=== PATIENT | female | born 1965 | race Hispanic/Latino ===

== ENCOUNTER 2021-02-25 01:30 | Inpatient (IN) | payer MEDICARE ==
[2021-02-25 16:11] LABS: Basophils # (Auto) 0.1 K/mm3 (0.0-0.1); Basophils % (Auto) 0.7 % (0.0-1.8); Eosinophils # (Auto) 0.8 K/mm3 (0.0-0.4); Eosinophils % (Auto) 8.9 % (0.0-4.3); Hematocrit 31.5 % (30.3-42.9); Hemoglobin 10.8 gm/dl (10.1-14.3); Lymphocytes # (Auto) 2.1 K/mm3 (1.2-5.4); Lymphocytes % (Auto) 23.3 % (13.4-35.0); Mean Corpuscular HGB Conc 34 % (30-34); Mean Corpuscular Volume 85 fl (79-97); Monocytes # (Auto) 0.5 K/mm3 (0.0-0.8); Platelet Count 329 K/mm3 (140-440); Red Blood Count 3.72 M/mm3 (3.65-5.03); Red Cell Distribution Width 18.1 % (13.2-15.2)
[2021-02-25 16:35] LABS: Calcium 9.2 mg/dL (8.4-10.2); Chol/HDL Ratio 3.42 %
--- NOTE | 2021-02-26 09:07 | History and Physical Report ---
GP History & Physical - History of Present Illness Date of admission: 02/25/21 Date of Examination: 02/26/21 Reason for Admission: Danger to self, Danger to others, Failure of Outpatient Treatment, Severe anxiety/depression History of Present Illness: Per Admission Note: She arrived walking in escorted by two autocad technician. Patient went to ED at [facility] due to feeling HI towards her roommate whom she claimed was eating all her foods that she has not had a meal in 3 days. Patient states that his is not paying bills and he refused to leave. pt states that they have been arguing and that she had a panic attack with thought of hurting him so she called 911. Pt state she has hx of marijuana last taken was on Thursday02/23/21. Patient has history of Anxiety, Asthma, Depression, Bipolar, htn, and DM. Shikha Clark is a 55y/o female patient who states she was admitted to the hospital for having a "nervous breakdown." The patient says "I was homicidal, suicidal and having crying spells." She says "I have a person living with me who wants to just take over." She says she has a history of bipolar, PTSD, and schizophrenia. The patient says she's on geodon, vistaril, zoloft and wellbutrin. She says she's been compliant with her medications. She denies illicit drug use outside of THC. She also denies alcohol or nicotine use. PAST PSYCHIATRIC HISTORY: Diagnoses: Schizophrenia, bipolar, PTSD Suicide attempts or Self-harm behavior: Denies Prior psychiatric hospitalizations: Yes Substance Abuse history: THC Previous psychiatric medications tried: Klonopin, vistaril geodon, wellbutrin Outpatient treatment: Yes PAST MEDICAL HISTORY: None reported Family Psychiatric History: None reported or documented SOCIAL HISTORY Marital Status: single Living Arrangements: with boyfriend and his mom Employment Status: Disabled Access to guns/weapons: Denies Education: 10th History of Abuse: Denies Legal History: Denies REVIEW OF SYSTEMS Constitutional: Negative for weight loss ENT: Negative for stridor Respiratory: Negative for cough or hemoptysis All other systems reviewed and are negative MENTAL STATUS EXAMINATION General Appearance and Behavior: Age appropriate, good hygiene, not wearing appropriate clothes, good eye contact, cooperative polite with questioning. Cooperation: Participating Psychomotor Behavior: Psychomotor normal Mood: "Depressed, upset" Affect and affective range: restricted Thought Process: Goal directed Speech: Normal tone and pace Thought Content Suicidal Ideation: Yes Homicidal Ideation: Yes Hallucinations: Denies Delusions: None elicited Impulse Control: Impaired Insight and Judgment: Poor insight and judgment Memory: Limited Attention: Divided attention impaired Orientation: A/o x 3 Assessment and Plan (1) Schizoaffective Disorder Current Visit: Yes Status: Acute Treatment Plan Patient admitted for inpatient psychiatric evaluation, medication adjustment and close monitoring The patient's behavior, mood, sleep and appetite will be closely monitored. Patient enrolled in individual and group therapeutic sessions and encouraged to attend. Patient provided with a safe and structured environment. Patient's physical health needs will be addressed by the Hospitalist. Hospitalist Consulted Labs including CBC, CMP, Lipid profile and Hemoglobin A1C levels ordered for baseline reference Social Assessment will be completed and the Inspector Casing will work with patient and family to ensure a suitable and safe disposition Medication adjustment will be made as clinically indicated Restarted Geodon 20mg po BID Restarted Zoloft 25mg po daily Restarted Vistaril 25mg po BID prn anxiety Start Trazodone 50mg po qhs Usual Wellness Judaism/Preservation: - Start Melatonin 5 mg po QHS to promote circadian rhythm - Start [place]-3 for brain health, reduce impulsivity, and as adjunctive treatment for mood disorder, continue upon discharge given overall benefits. The patient agreed on the treatment plan, understood the risk, benefit, alternative treatment, potential consequence of no treatment, and gave informed consent. Estimated days: 7 Post hospital care: primary care provider, psychiatric provider This certifies that Shikha Clark will be treated for the symptoms of HI/SI, and depression Case staffed with Dr. Stern Legal Status: Voluntary Reaction to Hospitalization: Accepting Medications and Allergies Allergies Allergy/AdvReac Type Severity Reaction Status Date / Time adhesive tape Allergy Itching Verified 02/25/21 15:03 cefuroxime [From Ceftin] Allergy Unknown Unverified 02/25/21 11:15 coconut oil Allergy Hives Verified 02/25/21 15:03 Iodinated Contrast Media Allergy Hives Verified 02/25/21 15:03 ketorolac Allergy Anaphylaxis Verified 02/25/21 15:03 lisinopril Allergy Angioedema Verified 02/25/21 15:03 metronidazole Allergy Rash Verified 02/25/21 15:03 midazolam Allergy Hives Verified 02/25/21 15:03 milk Allergy Vomiting Verified 02/25/21 15:03 naproxen Allergy Hives Verified 02/25/21 15:03 pecan nut Allergy Anaphylaxis Verified 02/25/21 15:03 risperidone Allergy Hives Verified 02/25/21 15:03 tramadol Allergy Hives Verified 02/25/21 15:03 walnut Allergy Anaphylaxis Verified 02/25/21 15:03 haloperidol AdvReac Unknown Shortness Verified 02/25/21 15:03 of Breath bee venom protein (honey bee) AdvReac Unknown Verified 02/25/21 11:15 Home Medications Medication Instructions Recorded Confirmed Last Taken Type Albuterol Sulfate [Proair 3 mcg IH Q6HR PRN 02/25/21 02/25/21 Unknown History Digihaler] Dicyclomine [Bentyl] 20 mg PO BID MDD 10 days 02/25/21 02/25/21 Unknown History Fluticasone Propion/Salmeterol 1 each IH BID 02/25/21 02/25/21 Unknown History [Fluticasone-Salmeterol 250-50] Montelukast [Singulair] 10 mg PO QPM 02/25/21 02/25/21 Unknown History Omeprazole 40 mg PO DAILY 02/25/21 02/25/21 Unknown History Ondansetron [Zofran Odt] 4 mg PO Q8HR 02/25/21 02/25/21 Unknown History Promethazine [Phenergan] 25 mg PO Q6HR PRN 02/25/21 02/25/21 Unknown History Sulfamethoxazole/Trimethoprim 1 each PO BID 02/25/21 02/25/21 02/24/21 History [Bactrim DS TAB] amLODIPine [Norvasc] 5 mg PO DAILY 02/25/21 02/25/21 Unknown History glyBURIDE [Diabeta] 5 mg PO DAILY 02/25/21 02/25/21 Unknown History Results - Results Labs/Vitals: Laboratory Last Values WBC 8.9 K/mm3 (4.5-11.0) 02/25/21 15:49 RBC 3.72 M/mm3 (3.65-5.03) 02/25/21 15:49 Hgb 10.8 gm/dl (10.1-14.3) 02/25/21 15:49 Hct 31.5 % (30.3-42.9) 02/25/21 15:49 MCV 85 fl (79-97) 02/25/21 15:49 MCH 29 pg (28-32) 02/25/21 15:49 MCHC 34 % (30-34) 02/25/21 15:49 RDW 18.1 % (13.2-15.2) H 02/25/21 15:49 Plt Count 329 K/mm3 (140-440) 02/25/21 15:49 Lymph % (Auto) 23.3 % (13.4-35.0) 02/25/21 15:49 [place] % (Auto) 6.0 % (0.0-7.3) 02/25/21 15:49 Eos % (Auto) 8.9 % (0.0-4.3) H 02/25/21 15:49 Baso % (Auto) 0.7 % (0.0-1.8) 02/25/21 15:49 Lymph # (Auto) 2.1 K/mm3 (1.2-5.4) 02/25/21 15:49 [place] # (Auto) 0.5 K/mm3 (0.0-0.8) 02/25/21 15:49 Eos # (Auto) 0.8 K/mm3 (0.0-0.4) H 02/25/21 15:49 Baso # (Auto) 0.1 K/mm3 (0.0-0.1) 02/25/21 15:49 Seg Neutrophils % 61.1 % (40.0-70.0) 02/25/21 15:49 Seg Neutrophils # 5.5 K/mm3 (1.8-7.7) 02/25/21 15:49 Sodium 134 mmol/L (137-145) L 02/25/21 15:49 Potassium 3.5 mmol/L (3.6-5.0) L 02/25/21 15:49 Chloride 98.7 mmol/L (98-107) 02/25/21 15:49 Carbon Dioxide 23 mmol/L (22-30) 02/25/21 15:49 Anion Gap 16 mmol/L 02/25/21 15:49 BUN 9 mg/dL (7-17) 02/25/21 15:49 Creatinine 1.1 mg/dL (0.6-1.2) 02/25/21 15:49 Estimated GFR 52 ml/min 02/25/21 15:49 BUN/Creatinine Ratio 8 % 02/25/21 15:49 Glucose 135 mg/dL (65-100) H 02/25/21 15:49 POC Glucose 99 mg/dL (70-105) 02/25/21 19:49 Hemoglobin A1c 5.2 % (4-6) 02/25/21 15:49 Calcium 9.2 mg/dL (8.4-10.2) 02/25/21 15:49 Total Bilirubin 0.20 mg/dL (0.1-1.2) 02/25/21 15:49 AST 13 units/L (5-40) 02/25/21 15:49 ALT 8 units/L (7-56) 02/25/21 15:49 Alkaline Phosphatase 76 units/L (35-129) 02/25/21 15:49 Total Protein 6.6 g/dL (6.3-8.2) 02/25/21 15:49 Albumin 4.0 g/dL (3.9-5) 02/25/21 15:49 Albumin/Globulin Ratio 1.5 % 02/25/21 15:49 Triglycerides 121 mg/dL (2-149) 02/25/21 15:49 Cholesterol 178 mg/dL (50-199) 02/25/21 15:49 LDL Cholesterol Direct 115 mg/dL (50-130) 02/25/21 15:49 HDL Cholesterol 52 mg/dL (40-59) 02/25/21 15:49 Cholesterol/HDL Ratio 3.42 % 02/25/21 15:49 TSH 1.830 mlU/mL (0.270-4.200) 02/25/21 15:49 Last Vital Signs Temp 97.8 F 02/25/21 19:47 Pulse 73 02/25/21 19:47 Resp 20 02/25/21 19:47 BP 156/57 02/25/21 19:47 Pulse Ox 97 02/25/21 19:47 Physical Examination - Constitutional Vitals: Vital Signs Temp Pulse Resp BP Pulse Ox 97.8 F 73 20 156/57 97 02/25/21 19:47 02/25/21 19:47 02/25/21 19:47 02/25/21 19:47 02/25/21 19:47 Temperature -Last 24 Hours Temperature 97.8 F Temperature 97.4 F Mental Status Exam - Vital signs Last Vital Signs Temp 97.8 F 02/25/21 19:47 Pulse 73 02/25/21 19:47 Resp 20 02/25/21 19:47 BP 156/57 02/25/21 19:47 Pulse Ox 97 02/25/21 19:47 Physician Certification - Certification Statement Physician Certification Statement: This is an acknowledgement statement that SHIKHA CLARK is a 55 year old F who requires inpatient psychiatric admission for treatment which could reasonably be expected to improve the patient's condition for Estimated period of time patient will need to remain in the hospital: [ ] Plan for post-hospital care: [ ]
[2021-02-26] MEDS ORDERED: NON-FORMULARY EACH (Albuterol Sulfate [Proair Digihaler] 90 MCG Aer.Pw.Bas) IH PRN (09:15)
[2021-02-26] MEDS ORDERED: NON-FORMULARY EACH (Omeprazole [Omeprazole] 40 MG Capsule.Dr) PO SCH (10:00)
[2021-02-26] MEDS ORDERED: PROMETHAZINE 25 MG TAB PO PRN (11:00)
[2021-02-26] MEDS ORDERED: hydrOXYzine PAMOATE 25 MG CAP PO PRN (11:00)
[2021-02-26] MEDS: glyBURIDE 5 MG TAB PO SCH (11:54)
[2021-02-26] MEDS: DICYCLOMINE 20 MG TAB PO SCH ×2 (11:54→21:29)
[2021-02-26] MEDS: SERTRALINE 25 MG TAB PO SCH (11:55)
[2021-02-26] MEDS: PANTOPRAZOLE 40 MG TAB PO SCH (11:55)
[2021-02-26] MEDS: amLODIPine 5 MG TAB PO SCH (11:55)
[2021-02-26] MEDS: ZIPRASIDONE 20 MG CAP PO SCH ×2 (12:21→21:30)
[2021-02-26] MEDS: SULFAMETHOXAZOLE/TRIMETHOPRIM 800/160MG DS TAB PO SCH ×2 (12:21→21:29)
[2021-02-26] MEDS: BUDESONIDE 0.5 MG/2 ML NEBU IH SCH ×2 (14:19→15:12)
[2021-02-26] MEDS: ONDANSETRON 4 MG ODT TAB PO SCH ×2 (14:40→21:29)
[2021-02-26] MEDS: MONTELUKAST 10 MG TAB PO SCH (17:12)
[2021-02-26] MEDS: traZODone 50 MG TAB PO SCH (21:29)
[2021-02-27] MEDS: glyBURIDE 5 MG TAB PO SCH (08:02)
[2021-02-27] MEDS: SULFAMETHOXAZOLE/TRIMETHOPRIM 800/160MG DS TAB PO SCH ×2 (09:15→21:07)
[2021-02-27] MEDS: DICYCLOMINE 20 MG TAB PO SCH ×2 (09:15→21:08)
[2021-02-27] MEDS: SERTRALINE 25 MG TAB PO SCH (09:16)
[2021-02-27] MEDS: PANTOPRAZOLE 40 MG TAB PO SCH (09:16)
[2021-02-27] MEDS: ZIPRASIDONE 20 MG CAP PO SCH ×2 (09:16→21:08)
[2021-02-27] MEDS: amLODIPine 5 MG TAB PO SCH (09:16)
--- NOTE | 2021-02-27 10:09 | Progress Note ---
Subjective Date of service: 02/27/21 Subjective Comment: Per Nurse Note: Last evening the patient spent in the activity room. She had increased interactions with her peers. She denies si/hi/ah/vh but she can be observed talking to herself. Her appetite is good. She is medication compliant. Overnight the patient rested quietly. She presents as sleeping 8 hours. Will continue to monitor patient for safety. Patient seen in the day room today. Patient reports doing well " I'm doing better since I'm back on my medications." She reports sleeping well and appetite is good. She denies any suicidal ideation and denies and hallucination. Patient complains of pain to her right flank she states she has urinary tract infection which she states she is currently on Bactrim DS. Reason for continuation of care: patient: Patient recently endorsed HI towards her room mate; patient was started on psychotropic medications, will continue to evaluate for psychiatry symptoms. REVIEW OF SYSTEMS Constitutional: Negative for weight loss ENT: Negative for stridor Respiratory: Negative for cough or hemoptysis All other systems reviewed and are negative MENTAL STATUS EXAMINATION General Appearance and Behavior: Age appropriate, good hygiene, not wearing appropriate clothes, good eye contact, cooperative polite with questioning. Cooperation: Participating Psychomotor Behavior: Psychomotor normal Mood: Calm Affect and affective range: restricted Thought Process: Goal directed Speech: Normal tone and pace Thought Content Suicidal Ideation: No Homicidal Ideation: No Hallucinations: Denies Delusions: None elicited Impulse Control: Impaired Insight and Judgment: limited insight and judgment Memory: Limited Attention: Divided attention impaired Orientation: A/o x 3 Assessment and Plan (1) Schizoaffective Disorder Current Visit: Yes Status: Acute Treatment Plan Patient admitted for inpatient psychiatric evaluation, medication adjustment and close monitoring The patient's behavior, mood, sleep and appetite will be closely monitored. Patient enrolled in individual and group therapeutic sessions and encouraged to attend. Patient provided with a safe and structured environment. Patient's physical health needs will be addressed by the Hospitalist. Hospitalist Consulted Labs including CBC, CMP, Lipid profile and Hemoglobin A1C levels ordered for baseline reference Social Assessment will be completed and the Purse Maker will work with patient and family to ensure a suitable and safe disposition Medication adjustment will be made as clinically indicated Continue Geodon 20mg po BID Continue Zoloft 25mg po daily Continue Vistaril 25mg po BID prn anxiety Continue Trazodone 50mg po qhs Usual Wellness Gnosticism/Preservation: - Start Melatonin 5 mg po QHS to promote circadian rhythm - Start [place]-3 for brain health, reduce impulsivity, and as adjunctive treatment for mood disorder, continue upon discharge given overall benefits. The patient agreed on the treatment plan, understood the risk, benefit, alternative treatment, potential consequence of no treatment, and gave informed consent. Estimated days: 1-2 Post hospital care: primary care provider, psychiatric provider This certifies that Shikha Clark will be treated for the symptoms of HI/SI, and depression Case staffed with Dr. Stern Medications and Allergies Allergies Allergy/AdvReac Type Severity Reaction Status Date / Time adhesive tape Allergy Itching Verified 02/25/21 15:03 cefuroxime [From Ceftin] Allergy Unknown Unverified 02/25/21 11:15 coconut oil Allergy Hives Verified 02/25/21 15:03 Iodinated Contrast Media Allergy Hives Verified 02/25/21 15:03 ketorolac Allergy Anaphylaxis Verified 02/25/21 15:03 lisinopril Allergy Angioedema Verified 02/25/21 15:03 metronidazole Allergy Rash Verified 02/25/21 15:03 midazolam Allergy Hives Verified 02/25/21 15:03 milk Allergy Vomiting Verified 02/25/21 15:03 naproxen Allergy Hives Verified 02/25/21 15:03 pecan nut Allergy Anaphylaxis Verified 02/25/21 15:03 risperidone Allergy Hives Verified 02/25/21 15:03 tramadol Allergy Hives Verified 02/25/21 15:03 walnut Allergy Anaphylaxis Verified 02/25/21 15:03 haloperidol AdvReac Unknown Shortness Verified 02/25/21 15:03 of Breath bee venom protein (honey bee) AdvReac Unknown Verified 02/25/21 11:15 Home Medications Medication Instructions Recorded Confirmed Last Taken Type Albuterol Sulfate [Proair 3 mcg IH Q6HR PRN 02/25/21 02/25/21 Unknown History Digihaler] Dicyclomine [Bentyl] 20 mg PO BID MDD 10 days 02/25/21 02/25/21 Unknown History Fluticasone Propion/Salmeterol 1 each IH BID 02/25/21 02/25/21 Unknown History [Fluticasone-Salmeterol 250-50] Montelukast [Singulair] 10 mg PO QPM 02/25/21 02/25/21 Unknown History Omeprazole 40 mg PO DAILY 02/25/21 02/25/21 Unknown History Ondansetron [Zofran Odt] 4 mg PO Q8HR 02/25/21 02/25/21 Unknown History Promethazine [Phenergan] 25 mg PO Q6HR PRN 02/25/21 02/25/21 Unknown History Sulfamethoxazole/Trimethoprim 1 each PO BID 02/25/21 02/25/21 02/24/21 History [Bactrim DS TAB] amLODIPine [Norvasc] 5 mg PO DAILY 02/25/21 02/25/21 Unknown History glyBURIDE [Diabeta] 5 mg PO DAILY 02/25/21 02/25/21 Unknown History Active Meds: Active Medications Albuterol (Albuterol 2.5 Mg/3 Ml Nebu) 2.5 mg IH Q6HRT PRN PRN Reason: Wheezing Amlodipine Besylate (Amlodipine 5 Mg Tab) 5 mg PO DAILY [facility] Last Admin: 02/27/21 09:16 Dose: 5 mg Documented by: Budesonide (Budesonide 0.5 Mg/2 Ml Nebu) 0.5 mg IH Q12HRT [facility] Last Admin: 02/26/21 14:19 Dose: Not Given Documented by: Dicyclomine HCl (Dicyclomine 20 Mg Tab) 20 mg PO BID [facility] Last Admin: 02/27/21 09:15 Dose: 20 mg Documented by: Glyburide (Glyburide 5 Mg Tab) 5 mg PO QDDIAB [facility] Last Admin: 02/27/21 08:02 Dose: 5 mg Documented by: Hydroxyzine Pamoate (Hydroxyzine Pamoate 25 Mg Cap) 25 mg PO BID PRN PRN Reason: Anxiety Last Admin: 02/26/21 11:55 Dose: 25 mg Documented by: Montelukast Sodium (Montelukast 10 Mg Tab) 10 mg PO QPM [facility] Last Admin: 02/26/21 17:12 Dose: 10 mg Documented by: Ondansetron HCl (Ondansetron 4 Mg Odt Tab) 4 mg PO Q8HR [facility] Last Admin: 02/26/21 21:29 Dose: 4 mg Documented by: Pantoprazole Sodium (Pantoprazole 40 Mg Tab) 40 mg PO DAILY [facility] Last Admin: 02/27/21 09:16 Dose: 40 mg Documented by: Promethazine HCl (Promethazine 25 Mg Tab) 25 mg PO Q6H PRN PRN Reason: Nausea Sertraline HCl (Sertraline 25 Mg Tab) 25 mg PO QDAY [facility] Last Admin: 02/27/21 09:16 Dose: 25 mg Documented by: Trazodone HCl (Trazodone 50 Mg Tab) 50 mg PO QHS [facility] Last Admin: 02/26/21 21:29 Dose: 50 mg Documented by: Trimethoprim/Sulfamethoxazole (Sulfamethoxazole/Trimethoprim 800/160mg Ds Tab) 1 each PO BID [facility]; Protocol Stop: 03/04/21 22:01 Last Admin: 02/27/21 09:15 Dose: 1 each Documented by: Ziprasidone (Ziprasidone 20 Mg Cap) 20 mg PO BID [facility] Last Admin: 02/27/21 09:16 Dose: 20 mg Documented by: Results - Results Labs/Vitals: Laboratory Last Values WBC 8.9 K/mm3 (4.5-11.0) 02/25/21 15:49 RBC 3.72 M/mm3 (3.65-5.03) 02/25/21 15:49 Hgb 10.8 gm/dl (10.1-14.3) 02/25/21 15:49 Hct 31.5 % (30.3-42.9) 02/25/21 15:49 MCV 85 fl (79-97) 02/25/21 15:49 MCH 29 pg (28-32) 02/25/21 15:49 MCHC 34 % (30-34) 02/25/21 15:49 RDW 18.1 % (13.2-15.2) H 02/25/21 15:49 Plt Count 329 K/mm3 (140-440) 02/25/21 15:49 Lymph % (Auto) 23.3 % (13.4-35.0) 02/25/21 15:49 [place] % (Auto) 6.0 % (0.0-7.3) 02/25/21 15:49 Eos % (Auto) 8.9 % (0.0-4.3) H 02/25/21 15:49 Baso % (Auto) 0.7 % (0.0-1.8) 02/25/21 15:49 Lymph # (Auto) 2.1 K/mm3 (1.2-5.4) 02/25/21 15:49 [place] # (Auto) 0.5 K/mm3 (0.0-0.8) 02/25/21 15:49 Eos # (Auto) 0.8 K/mm3 (0.0-0.4) H 02/25/21 15:49 Baso # (Auto) 0.1 K/mm3 (0.0-0.1) 02/25/21 15:49 Seg Neutrophils % 61.1 % (40.0-70.0) 02/25/21 15:49 Seg Neutrophils # 5.5 K/mm3 (1.8-7.7) 02/25/21 15:49 Sodium 134 mmol/L (137-145) L 02/25/21 15:49 Potassium 3.5 mmol/L (3.6-5.0) L 02/25/21 15:49 Chloride 98.7 mmol/L (98-107) 02/25/21 15:49 Carbon Dioxide 23 mmol/L (22-30) 02/25/21 15:49 Anion Gap 16 mmol/L 02/25/21 15:49 BUN 9 mg/dL (7-17) 02/25/21 15:49 Creatinine 1.1 mg/dL (0.6-1.2) 02/25/21 15:49 Estimated GFR 52 ml/min 02/25/21 15:49 BUN/Creatinine Ratio 8 % 02/25/21 15:49 Glucose 135 mg/dL (65-100) H 02/25/21 15:49 POC Glucose 72 mg/dL (70-105) 02/26/21 20:15 Hemoglobin A1c 5.2 % (4-6) 02/25/21 15:49 Calcium 9.2 mg/dL (8.4-10.2) 02/25/21 15:49 Total Bilirubin 0.20 mg/dL (0.1-1.2) 02/25/21 15:49 AST 13 units/L (5-40) 02/25/21 15:49 ALT 8 units/L (7-56) 02/25/21 15:49 Alkaline Phosphatase 76 units/L (35-129) 02/25/21 15:49 Total Protein 6.6 g/dL (6.3-8.2) 02/25/21 15:49 Albumin 4.0 g/dL (3.9-5) 02/25/21 15:49 Albumin/Globulin Ratio 1.5 % 02/25/21 15:49 Triglycerides 121 mg/dL (2-149) 02/25/21 15:49 Cholesterol 178 mg/dL (50-199) 02/25/21 15:49 LDL Cholesterol Direct 115 mg/dL (50-130) 02/25/21 15:49 HDL Cholesterol 52 mg/dL (40-59) 02/25/21 15:49 Cholesterol/HDL Ratio 3.42 % 02/25/21 15:49 TSH 1.830 mlU/mL (0.270-4.200) 02/25/21 15:49 Last Vital Signs Temp 98.8 F 02/27/21 08:03 Pulse 85 02/27/21 09:16 Resp 18 02/27/21 08:03 BP 132/71 02/27/21 09:16 Pulse Ox 100 02/27/21 08:03
[2021-02-27] MEDS: ONDANSETRON 4 MG ODT TAB PO SCH ×3 (14:55→21:08)
[2021-02-27] MEDS: BUDESONIDE 0.5 MG/2 ML NEBU IH SCH (15:12)
[2021-02-27] MEDS: ALBUTEROL 2.5 MG/3 ML NEBU IH PRN (15:13)
[2021-02-27] MEDS: MONTELUKAST 10 MG TAB PO SCH (17:20)
--- NOTE | 2021-02-27 17:39 | Consultation ---
History of Present Illness - Reason for Consult Medical management Requesting physician: NIKUNJ GONCALVES - History of Present Illness 55 YO Female with HTN, DM, MARTINA, Bipolar Disorder, Depression admitted to [facility] for psychiatric stabilization. Consult placed by Dr. Goncalves for medical management. Patient seen and evaluated in the recreation room. Patient denies fever, chills, chest pain, palpitation, adductive cough, skin rash, recent ill contact, or known exposure to COVID-19. No reported nursing events. Past History Past Medical History: diabetes, hypertension, other (see HPI) Medications and Allergies Allergies Allergy/AdvReac Type Severity Reaction Status Date / Time adhesive tape Allergy Itching Verified 02/25/21 15:03 cefuroxime [From Ceftin] Allergy Unknown Unverified 02/25/21 11:15 coconut oil Allergy Hives Verified 02/25/21 15:03 Iodinated Contrast Media Allergy Hives Verified 02/25/21 15:03 ketorolac Allergy Anaphylaxis Verified 02/25/21 15:03 lisinopril Allergy Angioedema Verified 02/25/21 15:03 metronidazole Allergy Rash Verified 02/25/21 15:03 midazolam Allergy Hives Verified 02/25/21 15:03 milk Allergy Vomiting Verified 02/25/21 15:03 naproxen Allergy Hives Verified 02/25/21 15:03 pecan nut Allergy Anaphylaxis Verified 02/25/21 15:03 risperidone Allergy Hives Verified 02/25/21 15:03 tramadol Allergy Hives Verified 02/25/21 15:03 walnut Allergy Anaphylaxis Verified 02/25/21 15:03 haloperidol AdvReac Unknown Shortness Verified 02/25/21 15:03 of Breath bee venom protein (honey bee) AdvReac Unknown Verified 02/25/21 11:15 Home Medications Medication Instructions Recorded Confirmed Last Taken Type Albuterol Sulfate [Proair 3 mcg IH Q6HR PRN 02/25/21 02/25/21 Unknown History Digihaler] Dicyclomine [Bentyl] 20 mg PO BID MDD 10 days 02/25/21 02/25/21 Unknown History Fluticasone Propion/Salmeterol 1 each IH BID 02/25/21 02/25/21 Unknown History [Fluticasone-Salmeterol 250-50] Montelukast [Singulair] 10 mg PO QPM 02/25/21 02/25/21 Unknown History Omeprazole 40 mg PO DAILY 02/25/21 02/25/21 Unknown History Ondansetron [Zofran Odt] 4 mg PO Q8HR 02/25/21 02/25/21 Unknown History Promethazine [Phenergan] 25 mg PO Q6HR PRN 02/25/21 02/25/21 Unknown History Sulfamethoxazole/Trimethoprim 1 each PO BID 02/25/21 02/25/21 02/24/21 History [Bactrim DS TAB] amLODIPine [Norvasc] 5 mg PO DAILY 02/25/21 02/25/21 Unknown History glyBURIDE [Diabeta] 5 mg PO DAILY 02/25/21 02/25/21 Unknown History Sertraline [Zoloft] 25 mg PO QDAY #30 tablet 03/01/21 Unknown Rx Ziprasidone [Geodon] 20 mg PO BID #60 capsule 03/01/21 Unknown Rx Active Meds: Active Medications Albuterol (Albuterol 2.5 Mg/3 Ml Nebu) 2.5 mg IH Q6HRT PRN PRN Reason: Wheezing Last Admin: 02/27/21 15:13 Dose: 2.5 mg Documented by: Amlodipine Besylate (Amlodipine 5 Mg Tab) 5 mg PO DAILY [facility] Last Admin: 02/27/21 09:16 Dose: 5 mg Documented by: Budesonide (Budesonide 0.5 Mg/2 Ml Nebu) 0.5 mg IH Q12HRT [facility] Last Admin: 02/27/21 15:12 Dose: 0.5 mg Documented by: Dicyclomine HCl (Dicyclomine 20 Mg Tab) 20 mg PO BID [facility] Last Admin: 02/27/21 09:15 Dose: 20 mg Documented by: Glyburide (Glyburide 5 Mg Tab) 5 mg PO QDDIAB [facility] Last Admin: 02/27/21 08:02 Dose: 5 mg Documented by: Hydroxyzine Pamoate (Hydroxyzine Pamoate 25 Mg Cap) 25 mg PO BID PRN PRN Reason: Anxiety Last Admin: 02/26/21 11:55 Dose: 25 mg Documented by: Montelukast Sodium (Montelukast 10 Mg Tab) 10 mg PO QPM [facility] Last Admin: 02/27/21 17:20 Dose: 10 mg Documented by: Ondansetron HCl (Ondansetron 4 Mg Odt Tab) 4 mg PO Q8HR [facility] Last Admin: 02/27/21 14:55 Dose: Not Given Documented by: Pantoprazole Sodium (Pantoprazole 40 Mg Tab) 40 mg PO DAILY [facility] Last Admin: 02/27/21 09:16 Dose: 40 mg Documented by: Promethazine HCl (Promethazine 25 Mg Tab) 25 mg PO Q6H PRN PRN Reason: Nausea Sertraline HCl (Sertraline 25 Mg Tab) 25 mg PO QDAY [facility] Last Admin: 02/27/21 09:16 Dose: 25 mg Documented by: Trazodone HCl (Trazodone 50 Mg Tab) 50 mg PO QHS [facility] Last Admin: 02/26/21 21:29 Dose: 50 mg Documented by: Trimethoprim/Sulfamethoxazole (Sulfamethoxazole/Trimethoprim 800/160mg Ds Tab) 1 each PO BID [facility]; Protocol Stop: 03/04/21 22:01 Last Admin: 02/27/21 09:15 Dose: 1 each Documented by: Ziprasidone (Ziprasidone 20 Mg Cap) 20 mg PO BID [facility] Last Admin: 02/27/21 09:16 Dose: 20 mg Documented by: Exam - Constitutional Vitals: Temp Pulse Resp BP Pulse Ox 98.8 F 78 18 132/71 100 02/27/21 08:03 02/27/21 15:18 02/27/21 15:18 02/27/21 09:16 02/27/21 08:03 Results - Labs CBC & Chem 7: 02/25/21 15:49 02/25/21 15:49 Labs: Abnormal lab results 02/27/21 02/27/21 Range/Units 05:52 06:23 POC Glucose 64 L 116 H (70-105) mg/dL Assessment and Plan - Patient Problems (1) HTN (hypertension) Status: Acute Qualifiers: Hypertension type: primary hypertension Qualified Code(s): I10 - Essential (primary) hypertension Plan to address problem: Monitor blood pressure every shift, continue medical management (2) Diabetes Status: Acute Plan to address problem: Consistent carbohydrate diet, hypoglycemia protocol, insulin protocol (3) Depression Status: Acute Plan to address problem: Anti depressive therapy as per primary team, continue medical management. (4) MARTINA (generalized anxiety disorder) Status: Acute Plan to address problem: Verbal prompting, verbal redirection, benzodiazepine therapy as clinically indicated.
[2021-02-27] MEDS: traZODone 50 MG TAB PO SCH (21:08)
[2021-02-28] MEDS: ONDANSETRON 4 MG ODT TAB PO SCH ×3 (06:36→21:25)
--- NOTE | 2021-02-28 09:14 | Progress Note ---
Subjective Date of service: 02/28/21 Principal diagnosis: schizoaffective disorder Subjective Comment: The patient was seen today, she says she's doing alright. She says she still gets upset at the people at her house. When asked was she still homicidal, she says "I don't think so. Not really." She denies suicidal thoughts. She also denies hallucinations. Reason for continued inpatient treatment: The patient was admitted for homicidal thoughts. She seemed unsure when asked was she still feeling this way. Will continue to treat and monitor to ensue safety of all upon discharge. REVIEW OF SYSTEMS Constitutional: Negative for weight loss ENT: Negative for stridor Respiratory: Negative for cough or hemoptysis All other systems reviewed and are negative MENTAL STATUS EXAMINATION General Appearance and Behavior: Age appropriate, good hygiene, not wearing appropriate clothes, good eye contact, cooperative polite with questioning. Cooperation: Participating Psychomotor Behavior: Psychomotor normal Mood: Calm Affect and affective range: restricted Thought Process: Goal directed Speech: Normal tone and pace Thought Content Suicidal Ideation: No Homicidal Ideation: No Hallucinations: Denies Delusions: None elicited Impulse Control: Impaired Insight and Judgment: limited insight and judgment Memory: Limited Attention: Divided attention impaired Orientation: A/o x 3 Assessment and Plan (1) Schizoaffective Disorder Current Visit: Yes Status: Acute Treatment Plan Patient admitted for inpatient psychiatric evaluation, medication adjustment and close monitoring The patient's behavior, mood, sleep and appetite will be closely monitored. Patient enrolled in individual and group therapeutic sessions and encouraged to attend. Patient provided with a safe and structured environment. Patient's physical health needs will be addressed by the Hospitalist. Hospitalist Consulted Labs including CBC, CMP, Lipid profile and Hemoglobin A1C levels ordered for baseline reference Social Assessment will be completed and the Commercial Horticulture Instructor will work with patient and family to ensure a suitable and safe disposition Medication adjustment will be made as clinically indicated Continue Geodon 20mg po BID Continue Zoloft 25mg po daily Continue Vistaril 25mg po BID prn anxiety Continue Trazodone 50mg po qhs Usual Wellness Confucianist/Preservation: - Start Melatonin 5 mg po QHS to promote circadian rhythm - Start [place]-3 for brain health, reduce impulsivity, and as adjunctive treatment for mood disorder, continue upon discharge given overall benefits. The patient agreed on the treatment plan, understood the risk, benefit, alter [place] treatment, potential consequence of no treatment, and gave informed consent. Estimated days: 1-2 Post hospital care: primary care provider, psychiatric provider This certifies that Shikha Clark will be treated for the symptoms of HI/SI, and depression Case staffed with Dr. Stern Medications and Allergies Allergies Allergy/AdvReac Type Severity Reaction Status Date / Time adhesive tape Allergy Itching Verified 02/25/21 15:03 cefuroxime [From Ceftin] Allergy Unknown Unverified 02/25/21 11:15 coconut oil Allergy Hives Verified 02/25/21 15:03 Iodinated Contrast Media Allergy Hives Verified 02/25/21 15:03 ketorolac Allergy Anaphylaxis Verified 02/25/21 15:03 lisinopril Allergy Angioedema Verified 02/25/21 15:03 metronidazole Allergy Rash Verified 02/25/21 15:03 midazolam Allergy Hives Verified 02/25/21 15:03 milk Allergy Vomiting Verified 02/25/21 15:03 naproxen Allergy Hives Verified 02/25/21 15:03 pecan nut Allergy Anaphylaxis Verified 02/25/21 15:03 risperidone Allergy Hives Verified 02/25/21 15:03 tramadol Allergy Hives Verified 02/25/21 15:03 walnut Allergy Anaphylaxis Verified 02/25/21 15:03 haloperidol AdvReac Unknown Shortness Verified 02/25/21 15:03 of Breath bee venom protein (honey bee) AdvReac Unknown Verified 02/25/21 11:15 Home Medications Medication Instructions Recorded Confirmed Last Taken Type Albuterol Sulfate [Proair 3 mcg IH Q6HR PRN 02/25/21 02/25/21 Unknown History Digihaler] Dicyclomine [Bentyl] 20 mg PO BID MDD 10 days 02/25/21 02/25/21 Unknown History Fluticasone Propion/Salmeterol 1 each IH BID 02/25/21 02/25/21 Unknown History [Fluticasone-Salmeterol 250-50] Montelukast [Singulair] 10 mg PO QPM 02/25/21 02/25/21 Unknown History Omeprazole 40 mg PO DAILY 02/25/21 02/25/21 Unknown History Ondansetron [Zofran Odt] 4 mg PO Q8HR 02/25/21 02/25/21 Unknown History Promethazine [Phenergan] 25 mg PO Q6HR PRN 02/25/21 02/25/21 Unknown History Sulfamethoxazole/Trimethoprim 1 each PO BID 02/25/21 02/25/21 02/24/21 History [Bactrim DS TAB] amLODIPine [Norvasc] 5 mg PO DAILY 02/25/21 02/25/21 Unknown History glyBURIDE [Diabeta] 5 mg PO DAILY 02/25/21 02/25/21 Unknown History Active Meds: Active Medications Albuterol (Albuterol 2.5 Mg/3 Ml Nebu) 2.5 mg IH Q6HRT PRN PRN Reason: Wheezing Last Admin: 02/27/21 15:13 Dose: 2.5 mg Documented by: Amlodipine Besylate (Amlodipine 5 Mg Tab) 5 mg PO DAILY [facility] Last Admin: 02/27/21 09:16 Dose: 5 mg Documented by: Budesonide (Budesonide 0.5 Mg/2 Ml Nebu) 0.5 mg IH Q12HRT [facility] Last Admin: 02/27/21 15:12 Dose: 0.5 mg Documented by: Dicyclomine HCl (Dicyclomine 20 Mg Tab) 20 mg PO BID [facility] Last Admin: 02/27/21 21:08 Dose: 20 mg Documented by: Glyburide (Glyburide 5 Mg Tab) 5 mg PO QDDIAB [facility] Last Admin: 02/27/21 08:02 Dose: 5 mg Documented by: Hydroxyzine Pamoate (Hydroxyzine Pamoate 25 Mg Cap) 25 mg PO BID PRN PRN Reason: Anxiety Last Admin: 02/26/21 11:55 Dose: 25 mg Documented by: Montelukast Sodium (Montelukast 10 Mg Tab) 10 mg PO QPM [facility] Last Admin: 02/27/21 17:20 Dose: 10 mg Documented by: Ondansetron HCl (Ondansetron 4 Mg Odt Tab) 4 mg PO Q8HR [facility] Last Admin: 02/28/21 06:36 Dose: 4 mg Documented by: Pantoprazole Sodium (Pantoprazole 40 Mg Tab) 40 mg PO DAILY [facility] Last Admin: 02/27/21 09:16 Dose: 40 mg Documented by: Promethazine HCl (Promethazine 25 Mg Tab) 25 mg PO Q6H PRN PRN Reason: Nausea Sertraline HCl (Sertraline 25 Mg Tab) 25 mg PO QDAY [facility] Last Admin: 02/27/21 09:16 Dose: 25 mg Documented by: Trazodone HCl (Trazodone 50 Mg Tab) 50 mg PO QHS [facility] Last Admin: 02/27/21 21:08 Dose: 50 mg Documented by: Trimethoprim/Sulfamethoxazole (Sulfamethoxazole/Trimethoprim 800/160mg Ds Tab) 1 each PO BID [facility]; Protocol Stop: 03/04/21 22:01 Last Admin: 02/27/21 21:07 Dose: 1 each Documented by: Ziprasidone (Ziprasidone 20 Mg Cap) 20 mg PO BID [facility] Last Admin: 02/27/21 21:08 Dose: 20 mg Documented by: Results - Results Labs/Vitals: Laboratory Last Values WBC 8.9 K/mm3 (4.5-11.0) 02/25/21 15:49 RBC 3.72 M/mm3 (3.65-5.03) 02/25/21 15:49 Hgb 10.8 gm/dl (10.1-14.3) 02/25/21 15:49 Hct 31.5 % (30.3-42.9) 02/25/21 15:49 MCV 85 fl (79-97) 02/25/21 15:49 MCH 29 pg (28-32) 02/25/21 15:49 MCHC 34 % (30-34) 02/25/21 15:49 RDW 18.1 % (13.2-15.2) H 02/25/21 15:49 Plt Count 329 K/mm3 (140-440) 02/25/21 15:49 Lymph % (Auto) 23.3 % (13.4-35.0) 02/25/21 15:49 [place] % (Auto) 6.0 % (0.0-7.3) 02/25/21 15:49 Eos % (Auto) 8.9 % (0.0-4.3) H 02/25/21 15:49 Baso % (Auto) 0.7 % (0.0-1.8) 02/25/21 15:49 Lymph # (Auto) 2.1 K/mm3 (1.2-5.4) 02/25/21 15:49 [place] # (Auto) 0.5 K/mm3 (0.0-0.8) 02/25/21 15:49 Eos # (Auto) 0.8 K/mm3 (0.0-0.4) H 02/25/21 15:49 Baso # (Auto) 0.1 K/mm3 (0.0-0.1) 02/25/21 15:49 Seg Neutrophils % 61.1 % (40.0-70.0) 02/25/21 15:49 Seg Neutrophils # 5.5 K/mm3 (1.8-7.7) 02/25/21 15:49 Sodium 134 mmol/L (137-145) L 02/25/21 15:49 Potassium 3.5 mmol/L (3.6-5.0) L 02/25/21 15:49 Chloride 98.7 mmol/L (98-107) 02/25/21 15:49 Carbon Dioxide 23 mmol/L (22-30) 02/25/21 15:49 Anion Gap 16 mmol/L 02/25/21 15:49 BUN 9 mg/dL (7-17) 02/25/21 15:49 Creatinine 1.1 mg/dL (0.6-1.2) 02/25/21 15:49 Estimated GFR 52 ml/min 02/25/21 15:49 BUN/Creatinine Ratio 8 % 02/25/21 15:49 Glucose 135 mg/dL (65-100) H 02/25/21 15:49 POC Glucose 84 mg/dL (70-105) 02/28/21 07:38 Hemoglobin A1c 5.2 % (4-6) 02/25/21 15:49 Calcium 9.2 mg/dL (8.4-10.2) 02/25/21 15:49 Total Bilirubin 0.20 mg/dL (0.1-1.2) 02/25/21 15:49 AST 13 units/L (5-40) 02/25/21 15:49 ALT 8 units/L (7-56) 02/25/21 15:49 Alkaline Phosphatase 76 units/L (35-129) 02/25/21 15:49 Total Protein 6.6 g/dL (6.3-8.2) 02/25/21 15:49 Albumin 4.0 g/dL (3.9-5) 02/25/21 15:49 Albumin/Globulin Ratio 1.5 % 02/25/21 15:49 Triglycerides 121 mg/dL (2-149) 02/25/21 15:49 Cholesterol 178 mg/dL (50-199) 02/25/21 15:49 LDL Cholesterol Direct 115 mg/dL (50-130) 02/25/21 15:49 HDL Cholesterol 52 mg/dL (40-59) 02/25/21 15:49 Cholesterol/HDL Ratio 3.42 % 02/25/21 15:49 TSH 1.830 mlU/mL (0.270-4.200) 02/25/21 15:49 Last Vital Signs Temp 98.5 F 02/27/21 19:33 Pulse 78 02/27/21 19:33 Resp 16 02/27/21 19:33 BP 138/54 02/27/21 19:33 Pulse Ox 93 02/27/21 19:33
[2021-02-28] MEDS: PANTOPRAZOLE 40 MG TAB PO SCH (10:33)
[2021-02-28] MEDS: ZIPRASIDONE 20 MG CAP PO SCH ×3 (10:34→21:34)
[2021-02-28] MEDS: SERTRALINE 25 MG TAB PO SCH (10:34)
[2021-02-28] MEDS: amLODIPine 5 MG TAB PO SCH (10:34)
[2021-02-28] MEDS: glyBURIDE 5 MG TAB PO SCH (10:35)
[2021-02-28] MEDS: DICYCLOMINE 20 MG TAB PO SCH ×3 (10:36→21:26)
[2021-02-28] MEDS: SULFAMETHOXAZOLE/TRIMETHOPRIM 800/160MG DS TAB PO SCH ×2 (10:40→21:26)
[2021-02-28] MEDS: BUDESONIDE 0.5 MG/2 ML NEBU IH SCH ×2 (11:26→11:30)
[2021-02-28] MEDS: ALBUTEROL 2.5 MG/3 ML NEBU IH PRN ×2 (11:26→11:30)
[2021-02-28] MEDS: traZODone 50 MG TAB PO SCH (21:25)
[2021-03-01] MEDS: ONDANSETRON 4 MG ODT TAB PO SCH ×3 (06:26→21:15)
--- NOTE | 2021-03-01 08:22 | Progress Note ---
Subjective Date of service: 03/01/21 Principal diagnosis: schizoaffective disorder Subjective Comment: Per Psych Nurse: Last evening the patient interacted appropriately with her peers. She complains of anxiety. She states her nausea has resolved. She denies si/hi/ah/vh but at times talks to herself. Her appetite is fair and she is medication compliant. Overnight the patient rested quietly. She presents as sleeping 8 hours. Will continue to monitor patient for safety. Psych Progress HPI Patient describes a good and stable mood, denies being depressed or excessively nervous. Patient eats and sleeps well. Patient denies panic attacks, recurrent nightmares or flashbacks. Patient denies symptoms suggestive of OCD or PTSD. Patient denies hallucinations, paranoia, thought interference and no features suggestive of hypomania or yessica. Patiently completely denies suicidal or homicidal thoughts. Reason for continuing inpatient treatment: Will observe for persistent stability and start planning for safety discharge Review of Symptoms: Constitutional: Negative for weight loss ENT: Negative for stridor Respiratory: Negative for cough or hemoptysis All other systems reviewed and are negative MENTAL STATUS EXAMINATION General Appearance and Behavior: Age appropriate, good hygiene, wearing appropriate clothes, good eye contact, cooperative polite with questioning. Cooperation: Participating/engaged Psychomotor Behavior: unremarkable and within normal limits Mood: Good Affect and affective range: congruent with mood Thought Process: Fluent/Logical, Thought Content: Within reality, Speech: Normal volume, Regular rate and rhythm, Intellectual Functioning: Average Suicidal Ideation: Denies SI Homicidal Ideation: Denies HI Impulse Control: Unimpaired Insight and Judgment: Normal insight and judgment, Memory: Normal, Attention: Normal, Orientation: Alert, oriented, Treatment Plan Continue current medication Patient admitted for inpatient psychiatric evaluation, medication adjustment and close monitoring The patient's behavior, mood, sleep and appetite will be closely monitored. Patient enrolled in individual and group therapeutic sessions and encouraged to attend. Patient provided with a safe and structured environment. Patient's physical health needs will be addressed by the Hospitalist. Hospitalist Consulted Labs including CBC, CMP, Lipid profile and Hemoglobin A1C levels ordered for baseline reference Social Assessment will be completed and the Oracle Database Administrator will work with patient and family to ensure a suitable and safe disposition Medication adjustment will be made as clinically indicated Usual Wellness Caodaism/Preservation: - Start Trazodone 50 mg po QHS & 50 mg po QHS PRN between 10 PM & 2 AM for insomnia - Start Melatonin 5 mg po QHS to promote circadian rhythm - Start [place]-3 for brain health, reduce impulsivity, and as adjunctive treatment for mood disorder, continue upon discharge given overall benefits. - Start B1 prophylaxis with 200 mg po for 5 days The patient agreed on the treatment plan, understood the risk, benefit, alternative treatment, potential consequence of no treatment, and gave informed consent. Initial Certification Inpatient psych services: I certify that the inpatient psychiatric services are required for treatment that could reasonably be expected to improve the patient's condition. Estimated days: 3 Post hospital care: primary care provider, psychiatric provider Medications and Allergies Allergies Allergy/AdvReac Type Severity Reaction Status Date / Time adhesive tape Allergy Itching Verified 02/25/21 15:03 cefuroxime [From Ceftin] Allergy Unknown Unverified 02/25/21 11:15 coconut oil Allergy Hives Verified 02/25/21 15:03 Iodinated Contrast Media Allergy Hives Verified 02/25/21 15:03 ketorolac Allergy Anaphylaxis Verified 02/25/21 15:03 lisinopril Allergy Angioedema Verified 02/25/21 15:03 metronidazole Allergy Rash Verified 02/25/21 15:03 midazolam Allergy Hives Verified 02/25/21 15:03 milk Allergy Vomiting Verified 02/25/21 15:03 naproxen Allergy Hives Verified 02/25/21 15:03 pecan nut Allergy Anaphylaxis Verified 02/25/21 15:03 risperidone Allergy Hives Verified 02/25/21 15:03 tramadol Allergy Hives Verified 02/25/21 15:03 walnut Allergy Anaphylaxis Verified 02/25/21 15:03 haloperidol AdvReac Unknown Shortness Verified 02/25/21 15:03 of Breath bee venom protein (honey bee) AdvReac Unknown Verified 02/25/21 11:15 Home Medications Medication Instructions Recorded Confirmed Last Taken Type Albuterol Sulfate [Proair 3 mcg IH Q6HR PRN 02/25/21 02/25/21 Unknown History Digihaler] Dicyclomine [Bentyl] 20 mg PO BID MDD 10 days 02/25/21 02/25/21 Unknown History Fluticasone Propion/Salmeterol 1 each IH BID 02/25/21 02/25/21 Unknown History [Fluticasone-Salmeterol 250-50] Montelukast [Singulair] 10 mg PO QPM 02/25/21 02/25/21 Unknown History Omeprazole 40 mg PO DAILY 02/25/21 02/25/21 Unknown History Ondansetron [Zofran Odt] 4 mg PO Q8HR 02/25/21 02/25/21 Unknown History Promethazine [Phenergan] 25 mg PO Q6HR PRN 02/25/21 02/25/21 Unknown History Sulfamethoxazole/Trimethoprim 1 each PO BID 02/25/21 02/25/21 02/24/21 History [Bactrim DS TAB] amLODIPine [Norvasc] 5 mg PO DAILY 02/25/21 02/25/21 Unknown History glyBURIDE [Diabeta] 5 mg PO DAILY 02/25/21 02/25/21 Unknown History Active Meds: Active Medications Albuterol (Albuterol 2.5 Mg/3 Ml Nebu) 2.5 mg IH Q6HRT PRN PRN Reason: Wheezing Last Admin: 02/28/21 11:30 Dose: 2.5 mg Documented by: Amlodipine Besylate (Amlodipine 5 Mg Tab) 5 mg PO DAILY [facility] Last Admin: 02/28/21 10:34 Dose: 5 mg Documented by: Budesonide (Budesonide 0.5 Mg/2 Ml Nebu) 0.5 mg IH Q12HRT [facility] Last Admin: 02/28/21 11:30 Dose: 0.5 mg Documented by: Dicyclomine HCl (Dicyclomine 20 Mg Tab) 20 mg PO BID [facility] Last Admin: 02/28/21 21:26 Dose: 20 mg Documented by: Glyburide (Glyburide 5 Mg Tab) 5 mg PO QDDIAB [facility] Last Admin: 02/28/21 10:35 Dose: 5 mg Documented by: Hydroxyzine Pamoate (Hydroxyzine Pamoate 25 Mg Cap) 25 mg PO BID PRN PRN Reason: Anxiety Last Admin: 02/26/21 11:55 Dose: 25 mg Documented by: Montelukast Sodium (Montelukast 10 Mg Tab) 10 mg PO QPM [facility] Last Admin: 02/27/21 17:20 Dose: 10 mg Documented by: Ondansetron HCl (Ondansetron 4 Mg Odt Tab) 4 mg PO Q8HR [facility] Last Admin: 03/01/21 06:26 Dose: 4 mg Documented by: Pantoprazole Sodium (Pantoprazole 40 Mg Tab) 40 mg PO DAILY [facility] Last Admin: 02/28/21 10:33 Dose: 40 mg Documented by: Promethazine HCl (Promethazine 25 Mg Tab) 25 mg PO Q6H PRN PRN Reason: Nausea Sertraline HCl (Sertraline 25 Mg Tab) 25 mg PO QDAY [facility] Last Admin: 02/28/21 10:34 Dose: 25 mg Documented by: Trazodone HCl (Trazodone 50 Mg Tab) 50 mg PO QHS [facility] Last Admin: 02/28/21 21:25 Dose: 50 mg Documented by: Trimethoprim/Sulfamethoxazole (Sulfamethoxazole/Trimethoprim 800/160mg Ds Tab) 1 each PO BID [facility]; Protocol Stop: 03/04/21 22:01 Last Admin: 02/28/21 21:26 Dose: 1 each Documented by: Ziprasidone (Ziprasidone 20 Mg Cap) 20 mg PO BID [facility] Last Admin: 02/28/21 21:34 Dose: 20 mg Documented by: Results - Results Labs/Vitals: Laboratory Last Values WBC 8.9 K/mm3 (4.5-11.0) 02/25/21 15:49 RBC 3.72 M/mm3 (3.65-5.03) 02/25/21 15:49 Hgb 10.8 gm/dl (10.1-14.3) 02/25/21 15:49 Hct 31.5 % (30.3-42.9) 02/25/21 15:49 MCV 85 fl (79-97) 02/25/21 15:49 MCH 29 pg (28-32) 02/25/21 15:49 MCHC 34 % (30-34) 02/25/21 15:49 RDW 18.1 % (13.2-15.2) H 02/25/21 15:49 Plt Count 329 K/mm3 (140-440) 02/25/21 15:49 Lymph % (Auto) 23.3 % (13.4-35.0) 02/25/21 15:49 [place] % (Auto) 6.0 % (0.0-7.3) 02/25/21 15:49 Eos % (Auto) 8.9 % (0.0-4.3) H 02/25/21 15:49 Baso % (Auto) 0.7 % (0.0-1.8) 02/25/21 15:49 Lymph # (Auto) 2.1 K/mm3 (1.2-5.4) 02/25/21 15:49 [place] # (Auto) 0.5 K/mm3 (0.0-0.8) 02/25/21 15:49 Eos # (Auto) 0.8 K/mm3 (0.0-0.4) H 02/25/21 15:49 Baso # (Auto) 0.1 K/mm3 (0.0-0.1) 02/25/21 15:49 Seg Neutrophils % 61.1 % (40.0-70.0) 02/25/21 15:49 Seg Neutrophils # 5.5 K/mm3 (1.8-7.7) 02/25/21 15:49 Sodium 134 mmol/L (137-145) L 02/25/21 15:49 Potassium 3.5 mmol/L (3.6-5.0) L 02/25/21 15:49 Chloride 98.7 mmol/L (98-107) 02/25/21 15:49 Carbon Dioxide 23 mmol/L (22-30) 02/25/21 15:49 Anion Gap 16 mmol/L 02/25/21 15:49 BUN 9 mg/dL (7-17) 02/25/21 15:49 Creatinine 1.1 mg/dL (0.6-1.2) 02/25/21 15:49 Estimated GFR 52 ml/min 02/25/21 15:49 BUN/Creatinine Ratio 8 % 02/25/21 15:49 Glucose 135 mg/dL (65-100) H 02/25/21 15:49 POC Glucose 89 mg/dL (70-105) 02/28/21 22:57 Hemoglobin A1c 5.2 % (4-6) 02/25/21 15:49 Calcium 9.2 mg/dL (8.4-10.2) 02/25/21 15:49 Total Bilirubin 0.20 mg/dL (0.1-1.2) 02/25/21 15:49 AST 13 units/L (5-40) 02/25/21 15:49 ALT 8 units/L (7-56) 02/25/21 15:49 Alkaline Phosphatase 76 units/L (35-129) 02/25/21 15:49 Total Protein 6.6 g/dL (6.3-8.2) 02/25/21 15:49 Albumin 4.0 g/dL (3.9-5) 02/25/21 15:49 Albumin/Globulin Ratio 1.5 % 02/25/21 15:49 Triglycerides 121 mg/dL (2-149) 02/25/21 15:49 Cholesterol 178 mg/dL (50-199) 02/25/21 15:49 LDL Cholesterol Direct 115 mg/dL (50-130) 02/25/21 15:49 HDL Cholesterol 52 mg/dL (40-59) 02/25/21 15:49 Cholesterol/HDL Ratio 3.42 % 02/25/21 15:49 TSH 1.830 mlU/mL (0.270-4.200) 02/25/21 15:49 Last Vital Signs Temp 98.2 F 02/28/21 07:18 Pulse 86 02/28/21 11:20 Resp 18 02/28/21 11:20 BP 137/54 02/28/21 10:34 Pulse Ox 95 02/28/21 07:18
--- NOTE | 2021-03-01 10:13 | Discharge Summary ---
Providers - Providers Date of Admission: 02/25/21 12:05 Date of discharge: 03/02/21 Attending physician: NIKUNJ GONCALVES MD 02/25/21 09:24 Consult to Physician [CONS] Routine Comment: Consulting Provider: ANDREI BALDERAS Physician Instructions: Reason For Exam: manage medical conditions Primary care physician: CALENDER SUPERVISOR Hospitalization Reason for admission: MDD Condition: Good Hospital course: The patient was provided inpatient psychiatric treatment with safe and supportive environment, group/individual therapy, psychiatric medication, medication adjustment, adverse effect monitor, medical evaluation, medical treatment, social service assessment, social support meeting, placement assessment and psycho-education. The patients mood, cognition, behavior, motivation, compliance to treatment and appreciation on family/social support are improved and stabilized. At the time of discharge, the patient had no suicidal ideas, no homicidal ideas, no aggressive thoughts, no endangering behavior and no debilitating adverse effects. The patient agreed on the treatment plan, understood the risk, benefit, alternative treatment, potential consequence of no treatment, and gave informed consent. Over 35 minutes spent for discharge process, education and behavioral counselling. Disposition: DC-01 TO HOME OR SELFCARE Allergies/Adverse Reactions: Allergies adhesive tape Allergy (Verified 02/25/21 15:03) Itching cefuroxime [From Ceftin] Allergy (Unverified 02/25/21 11:15) Unknown coconut oil Allergy (Verified 02/25/21 15:03) Hives Iodinated Contrast Media Allergy (Verified 02/25/21 15:03) Hives ketorolac Allergy (Verified 02/25/21 15:03) Anaphylaxis lisinopril Allergy (Verified 02/25/21 15:03) Angioedema metronidazole Allergy (Verified 02/25/21 15:03) Rash midazolam Allergy (Verified 02/25/21 15:03) Hives milk Allergy (Verified 02/25/21 15:03) Vomiting naproxen Allergy (Verified 02/25/21 15:03) Hives pecan nut Allergy (Verified 02/25/21 15:03) Anaphylaxis risperidone Allergy (Verified 02/25/21 15:03) Hives tramadol Allergy (Verified 02/25/21 15:03) Hives walnut Allergy (Verified 02/25/21 15:03) Anaphylaxis haloperidol Adverse Reaction (Unknown, Verified 02/25/21 15:03) Shortness of Breath bee venom protein (honey bee) Adverse Reaction (Verified 02/25/21 11:15) Unknown Vital Signs: Last Vital Signs Temp 98.2 F 02/28/21 07:18 Pulse 86 02/28/21 11:20 Resp 18 02/28/21 11:20 BP 137/54 02/28/21 10:34 Pulse Ox 95 02/28/21 07:18 Last Lab: Laboratory Last Values WBC 8.9 K/mm3 (4.5-11.0) 02/25/21 15:49 RBC 3.72 M/mm3 (3.65-5.03) 02/25/21 15:49 Hgb 10.8 gm/dl (10.1-14.3) 02/25/21 15:49 Hct 31.5 % (30.3-42.9) 02/25/21 15:49 MCV 85 fl (79-97) 02/25/21 15:49 MCH 29 pg (28-32) 02/25/21 15:49 MCHC 34 % (30-34) 02/25/21 15:49 RDW 18.1 % (13.2-15.2) H 02/25/21 15:49 Plt Count 329 K/mm3 (140-440) 02/25/21 15:49 Lymph % (Auto) 23.3 % (13.4-35.0) 02/25/21 15:49 Loving % (Auto) 6.0 % (0.0-7.3) 02/25/21 15:49 Eos % (Auto) 8.9 % (0.0-4.3) H 02/25/21 15:49 Baso % (Auto) 0.7 % (0.0-1.8) 02/25/21 15:49 Lymph # (Auto) 2.1 K/mm3 (1.2-5.4) 02/25/21 15:49 Loving # (Auto) 0.5 K/mm3 (0.0-0.8) 02/25/21 15:49 Eos # (Auto) 0.8 K/mm3 (0.0-0.4) H 02/25/21 15:49 Baso # (Auto) 0.1 K/mm3 (0.0-0.1) 02/25/21 15:49 Seg Neutrophils % 61.1 % (40.0-70.0) 02/25/21 15:49 Seg Neutrophils # 5.5 K/mm3 (1.8-7.7) 02/25/21 15:49 Sodium 134 mmol/L (137-145) L 02/25/21 15:49 Potassium 3.5 mmol/L (3.6-5.0) L 02/25/21 15:49 Chloride 98.7 mmol/L (98-107) 02/25/21 15:49 Carbon Dioxide 23 mmol/L (22-30) 02/25/21 15:49 Anion Gap 16 mmol/L 02/25/21 15:49 BUN 9 mg/dL (7-17) 02/25/21 15:49 Creatinine 1.1 mg/dL (0.6-1.2) 02/25/21 15:49 Estimated GFR 52 ml/min 02/25/21 15:49 BUN/Creatinine Ratio 8 % 02/25/21 15:49 Glucose 135 mg/dL (65-100) H 02/25/21 15:49 POC Glucose 112 mg/dL (70-105) H 03/01/21 08:02 Hemoglobin A1c 5.2 % (4-6) 02/25/21 15:49 Calcium 9.2 mg/dL (8.4-10.2) 02/25/21 15:49 Total Bilirubin 0.20 mg/dL (0.1-1.2) 02/25/21 15:49 AST 13 units/L (5-40) 02/25/21 15:49 ALT 8 units/L (7-56) 02/25/21 15:49 Alkaline Phosphatase 76 units/L (35-129) 02/25/21 15:49 Total Protein 6.6 g/dL (6.3-8.2) 02/25/21 15:49 Albumin 4.0 g/dL (3.9-5) 02/25/21 15:49 Albumin/Globulin Ratio 1.5 % 02/25/21 15:49 Triglycerides 121 mg/dL (2-149) 02/25/21 15:49 Cholesterol 178 mg/dL (50-199) 02/25/21 15:49 LDL Cholesterol Direct 115 mg/dL (50-130) 02/25/21 15:49 HDL Cholesterol 52 mg/dL (40-59) 02/25/21 15:49 Cholesterol/HDL Ratio 3.42 % 02/25/21 15:49 TSH 1.830 mlU/mL (0.270-4.200) 02/25/21 15:49 Core Measure Documentation - Palliative Care Palliative Care/ Comfort Measures: Not Applicable - Core Measures Any of the following diagnoses?: none Exam - Constitutional Vitals: Temp Pulse Resp BP Pulse Ox 98.2 F 86 18 137/54 95 02/28/21 07:18 02/28/21 11:20 02/28/21 11:20 02/28/21 10:34 02/28/21 07:18 General appearance: Present: no acute distress - EENT Eyes: Present: PERRL, EOM intact ENT: hearing intact, clear oral mucosa - Neck Neck: Present: supple, normal ROM - Respiratory Respiratory effort: normal - Abdominal Female genitourinary: Present: deferred - Integumentary Integumentary: Present: clear, warm, dry Plan Care Plan Goals: Goals: Maintain good and stable mental health. Plan of Treatment: The patient should be compliant with medications, not to use drugs and not to drink alcohol. The patient understands that if suicidal ideas, homicidal ideas, or any endangering thoughts arise, the patient should immediately seek for emergent assistance including but not limited to crisis hot line and emergency room. Follow up with outpatient Psychiatrist and PCP within 7 - 14 days of discharge. Follow up with: PRIMARY CARE, [Primary Care Provider] - 7 Days Prescriptions: Ziprasidone [Geodon] 20 mg PO BID #60 capsule Sertraline [Zoloft] 25 mg PO QDAY #30 tablet
[2021-03-01] MEDS: ZIPRASIDONE 20 MG CAP PO SCH ×2 (10:39→21:15)
[2021-03-01] MEDS: SERTRALINE 25 MG TAB PO SCH (10:39)
[2021-03-01] MEDS: amLODIPine 5 MG TAB PO SCH (10:39)
[2021-03-01] MEDS: PANTOPRAZOLE 40 MG TAB PO SCH (10:39)
[2021-03-01] MEDS: glyBURIDE 5 MG TAB PO SCH (10:40)
[2021-03-01] MEDS: SULFAMETHOXAZOLE/TRIMETHOPRIM 800/160MG DS TAB PO SCH ×2 (10:40→21:15)
[2021-03-01] MEDS: DICYCLOMINE 20 MG TAB PO SCH ×2 (10:40→21:15)
[2021-03-01] MEDS: BUDESONIDE 0.5 MG/2 ML NEBU IH SCH ×4 (11:00→20:00)
[2021-03-01] MEDS: MONTELUKAST 10 MG TAB PO SCH ×2 (18:35→20:38)
[2021-03-01] MEDS: traZODone 50 MG TAB PO SCH (21:15)
[2021-03-02] MEDS: ONDANSETRON 4 MG ODT TAB PO SCH (05:43)
[2021-03-02] MEDS: glyBURIDE 5 MG TAB PO SCH (09:00)
[2021-03-02 09:10] VITALS: BP 127/81
[2021-03-02] MEDS: BUDESONIDE 0.5 MG/2 ML NEBU IH SCH (12:26)
== END 2021-03-02 10:45 | disposition home or self-care (01) | DRG 885 ==
LOC: 3A 01:30 → UNDOADMIN 01:30 → 5A 12:05
PROVIDERS: ADMIT Psychiatry & Neurology Psychiatry; ATTEND Psychiatry & Neurology Psychiatry
DX: F25.9 Schizoaffective disorder, unspecified (principal); I10 Essential (primary) hypertension; F41.9 Anxiety disorder, unspecified; E11.9 Type 2 diabetes mellitus without complications; Z79.51 Long term (current) use of inhaled steroids; Z79.899 Other long term (current) drug therapy; Z88.3 Allergy status to other anti-infective agents; Z91.030 Bee allergy status; Z91.041 Radiographic dye allergy status; Z91.011 Allergy to milk products; Z91.010 Allergy to peanuts; Z91.018 Allergy to other foods; Z79.84 Long term (current) use of oral hypoglycemic drugs
CPT/HCPCS: 36415; 80053; 80061; 82962; 83036; 84443; 85025; 94640; G0378; Q0162; Q0177